=== PATIENT | female | born 1970 | race Caucasian/White ===

== ENCOUNTER 2024-09-28 14:20 | Emergency (ER) | payer OTHER ==
[2024-09-28] MEDS ORDERED: METHYLPREDNISOLONE 125 MG INJ ONE (15:00)
--- NOTE | 2024-09-28 17:09 | ER ---
Nurse's Notes [facility] Name: Shira Velázquez Age: 54 yrs Sex: Female : 1970 Arrival Date: 09/28/2024 Time: 14:20 Bed 14 Private MD: Diagnosis: Urticaria, unspecified;Acute allergic reaction Presentation: 09/28 14:26 Chief complaint: EMS states: they were toned out to for possible allergic reaction to kc6 tomato/citrus at 1145 and broke out in hives at 1200. pt reports the facility gave her 400mg of PO Benadryl prior to EMS arrival. pt was given 1mg of IV Epi by EMS en route. pt reports symptoms have resolved. Coronavirus screen: At this time, the client does not indicate any symptoms associated with coronavirus-19. Ebola Screen: No symptoms or risks identified at this time. Onset: The symptoms/episode began/occurred suddenly. Anaphylaxis evaluation, no signs or symptoms of anaphylaxis were noted. Initial Sepsis Screen: Does the patient meet any 2 criteria? No. Patient's initial sepsis screen is negative. Does the patient have a suspected source of infection? No. Patient's initial sepsis screen is negative. Risk Assessment: Do you want to hurt yourself or someone else? Patient reports no desire to harm self or others. Onset of symptoms was September 28, 2024. Care prior to arrival: Medication(s) given: epinephrine 1mg IV IV initiated. 20 GA, in the left antecubital area. 14:26 Method Of Arrival: EMS: [facility] 14:26 Acuity: WILLY 3 kc6 Historical: - Allergies: 14:29 Sulfa (Sulfonamide Antibiotics); kc6 14:29 Gentamicin; kc6 14:29 Betadine; kc6 - PMHx: 14:29 substance abuse; kc6 - PSHx: 14:29 section; Cholecystectomy; kc6 - Immunization history:: Adult Immunizations up to date. - Infectious Disease History:: Denies. - Social history:: Smoking status: Patient reports the use of cigarette tobacco products, smokes one-half pack cigarettes per day. - Family history:: not pertinent. - Hospitalizations: : No recent hospitalization is reported. Screenin:31 [facility] ED Fall Risk Assessment (Adult) History of falling in the last 3 months, kc6 including since admission No falls in past 3 months (0 pts) Confusion or Disorientation No (0 pts) Intoxicated or Sedated No (0 pts) Impaired Gait No (0 pts) Mobility Assist Device Used No (0 pt) Altered Elimination No (0 pt) Score/Fall Risk Level 0 - 2 = Low Risk Oriented to surroundings, Maintained a safe environment, Educated pt \T\ family on fall prevention, incl call for assistance when getting out of bed. Abuse screen: Denies threats or abuse. Denies injuries from another. Nutritional screening: No deficits noted. Tuberculosis screening: No symptoms or risk factors identified. Assessment: 16:02 General: Appears in no apparent distress. comfortable, well groomed, well developed, kc6 Behavior is calm, cooperative, appropriate for age. Pain: Denies pain. Neuro: Level of Consciousness is awake, alert, obeys commands, Oriented to person, place, time, situation, Appropriate for age. Cardiovascular: Capillary refill < 3 seconds. Respiratory: Airway is patent Trachea midline Respiratory effort is even, unlabored, Respiratory pattern is regular, symmetrical, Breath sounds are clear bilaterally. GI: No signs and/or symptoms were reported involving the gastrointestinal system. : No signs and/or symptoms were reported regarding the genitourinary system. EENT: No signs and/or symptoms were reported regarding the EENT system. Derm: Skin is intact, is healthy with good turgor, Skin is pink, warm \T\ dry. Rash noted that is itchy, red, raised, on chest, right arm and left arm. Musculoskeletal: No signs and/or symptoms reported regarding the musculoskeletal system. Circulation, motion, and sensation intact. Range of motion: intact in all extremities. 17:00 Reassessment: Patient appears in no apparent distress at this time. No changes from kc6 previously documented assessment. Patient and/or family updated on plan of care and expected duration. Pain level reassessed. Patient is alert, oriented x 3, equal unlabored respirations, skin warm/dry/pink. Vital Signs: 14:26 BP 119 / 77; Pulse 88; Resp 18 S; Temp 98.3(O); Pulse Ox 96% on R/A; Weight 70.31 kg kc6 (R); Height 5 ft. 8 in. (R); Pain 0/10; 16:00 BP 110 / 63; Pulse 71; Resp 16 S; Pulse Ox 100% on R/A; kc6 17:39 BP 124 / 84; Pulse 85; Resp 18 S; Pulse Ox 97% on R/A; kc6 14:26 Body Mass Index 23.57 (70.31 kg, 172.72 cm) kc6 14:26 Pain Scale: Adult kc6 ED Course: 14:26 Patient arrived in ED. kc6 14:28 James Riggs MD is Attending Physician. rn 14:29 Triage completed. kc6 14:29 Arm band placed on. kc6 14:30 Patient has correct armband on for positive identification. Bed in low position. Call kc6 light in reach. Side rails up X2. Pulse ox on. NIBP on. Door closed. Noise minimized. Lights dimmed. Warm blanket given. Pillow given. 14:30 Maintain EMS IV. Dressing intact. Good blood return noted. Site clean \T\ dry. Gauge \T\ yuly 6 site: 20G LAC. Flushed with 10 mL NS. Patient maintains SpO2 saturation greater than 95% on room air. 14:58 Luiza Girard, DEVORA is Primary Nurse. kc6 17:39 No provider procedures requiring assistance completed. IV discontinued, intact, kc6 bleeding controlled, No redness/swelling at site. Pressure dressing applied. Administered Medications: 15:28 Drug: MethylPrednisoLONE IVP 125 mg IVP once Route: IVP; Site: left antecubital; kc6 15:59 Follow up: Response: No adverse reaction kc6 Medication: 17:40 VIS not applicable for this client. kc6 Outcome: 17:08 Discharge ordered by . rn 17:39 Discharged to home ambulatory, with family, kc6 17:39 Condition: improved 17:39 Discharge instructions given to patient, family, Instructed on discharge instructions, follow up and referral plans. medication usage, Demonstrated understanding of instructions, follow-up care, medications, Prescriptions given X 1, 17:40 Patient left the ED. kc6 Signatures: James Riggs MD MD rn Campbell, Kaitlyn, RN RN kc
--- NOTE | 2024-09-28 17:09 | EDPHYS ---
Physician Documentation [facility] Name: Shira Velázquez Age: 54 yrs Sex: Female : 1970 Arrival Date: 09/28/2024 Time: 14:20 Bed 14 Private MD: ED Physician James Riggs HPI: 09/28 17:01 This 54 yrs old Female presents to ER via EMS with complaints of Allergic Reaction. rn 17:01 The patient presents with itching, rash. Onset: The symptoms/episode began/occurred rn just prior to arrival. Associated signs and symptoms: Pertinent positives: hives, vomiting. Severity of symptoms: At their worst the symptoms were moderate in the emergency department the symptoms have improved. The patient has experienced similar episodes in the past. Patient reports allergy to tomatoes and citrus, was eating a burrito at rehab and started to break out into a rash, hives, vomiting. Given Benadryl and epinephrine and now feeling better.. Historical: - Allergies: 14:29 Sulfa (Sulfonamide Antibiotics); kc6 14:29 Gentamicin; kc6 14:29 Betadine; kc6 - PMHx: 14:29 substance abuse; kc6 - PSHx: 14:29 section; Cholecystectomy; kc6 - Immunization history:: Adult Immunizations up to date. - Infectious Disease History:: Denies. - Social history:: Smoking status: Patient reports the use of cigarette tobacco products, smokes one-half pack cigarettes per day. - Family history:: not pertinent. - Hospitalizations: : No recent hospitalization is reported. ROS: 17:01 Constitutional: Negative for fever, chills, and weight loss, Neck: Negative for injury, rn pain, and swelling, Cardiovascular: Negative for chest pain, palpitations, and edema, Respiratory: Negative for shortness of breath, cough, wheezing, and pleuritic chest pain, Abdomen/GI: Positive for nausea and vomiting Back: Negative for injury and pain, MS/Extremity: Negative for injury and deformity, Skin: Positive for urticaria Neuro: Negative for headache, weakness, numbness, tingling, and seizure, Exam: 17:01 Constitutional: This is a well developed, well nourished patient who is awake, alert, rn and in no acute distress. ENT: No tongue swelling or stridor Cardiovascular: Regular rate and rhythm. No pulse deficits. Respiratory: No increased work of breathing, no retractions or nasal flaring. Abdomen/GI: Soft, non-tender MS/ Extremity: Pulses equal, no cyanosis. Neuro: Awake and alert, GCS 15, oriented to person, place, time, and situation. Vital Signs: 14:26 BP 119 / 77; Pulse 88; Resp 18 S; Temp 98.3(O); Pulse Ox 96% on R/A; Weight 70.31 kg kc6 (R); Height 5 ft. 8 in. (R); Pain 0/10; 16:00 BP 110 / 63; Pulse 71; Resp 16 S; Pulse Ox 100% on R/A; kc6 17:39 BP 124 / 84; Pulse 85; Resp 18 S; Pulse Ox 97% on R/A; kc6 14:26 Body Mass Index 23.57 (70.31 kg, 172.72 cm) kc6 14:26 Pain Scale: Adult kc6 MDM: 14:28 Medical Screening Exam initiated rn 17:01 Differential diagnosis: anaphylaxis, urticaria. Data reviewed: vital signs, nurses rn notes, and as a result, I will discharge patient. Counseling: I had a detailed discussion with the patient and/or guardian regarding the historical points, exam findings, and any diagnostic results supporting the discharge/admit diagnosis, the need for outpatient follow up, to return to the emergency department if symptoms worsen or persist or if there are any questions or concerns that arise at home. Response to treatment: the patient's symptoms have resolved after treatment, the patient's condition has returned to base line, the patient is now symptom free, and as a result, I will discharge patient. Special discussion: I discussed with the patient/guardian in detail that at this point there is no indication for admission to the hospital. It is understood, however, that if the symptoms persist or worsen the patient needs to return immediately for re-evaluation. Based on the history and exam findings, there is no indication for further emergent testing or inpatient evaluation. I discussed with the patient/guardian the need to see the radio news writer for further evaluation of the symptoms. ED course: Patient feels much better, observed here for 3 hours, no recurrence of urticaria or allergic phenomena. Will discharge home with steroids and as needed Benadryl. 09/28 14:34 Order name: IV Start; Complete Time: 14:58 rn Administered Medications: 15:28 Drug: MethylPrednisoLONE IVP 125 mg IVP once Route: IVP; Site: left antecubital; kc6 15:59 Follow up: Response: No adverse reaction kc6 Disposition Summary: 09/28/24 17:08 Discharge Ordered Notes: Location: Home rn Problem: new rn Symptoms: have improved rn Condition: Stable rn Diagnosis - Urticaria, unspecified rn - Acute allergic reaction rn Followup: rn - With: Private Physician - When: As needed - Reason: Recheck today's complaints, Re-evaluation by your physician Discharge Instructions: - Discharge Summary Sheet rn - Sonia rn Forms: - Medication Reconciliation Form rn - Antibiotic collections attorney - Prescription Opioid Use rn - Patient Portal Instructions rn - Leadership Thank You Letter rn Prescriptions: - Prednisone 20 mg Oral Tablet - take 3 tablets ORAL route once daily for 5 days; 15 tablet; Refills: 0, Product rn Selection Permitted Signatures: James Riggs MD MD rn Campbell, Kaitlyn, RN RN kc
[2024-09-28 17:44] VITALS: TEMP 98.3
[2024-09-28 17:46] VITALS: BP 124/84; O2SAT 97
== END 2024-09-28 17:40 | disposition home or self-care (01) ==
LOC: ER 14:20
DX: L50.9 Urticaria, unspecified (principal)
CPT/HCPCS: 96374; 99284; J2919

== ENCOUNTER 2024-10-04 18:52 | Emergency (ER) | payer OTHER ==
--- OUTSIDE RECORDS SUMMARY | 2024-10-04 18:55 | XMS REPORT | Continuity of Care Document ---
Author Name Unknown Address [address] [facility] [address] [place] [address] [facility] thconnect Address [address] [facility]. [address] [place] [address] Care Team Providers Care Engineering Intern Name Role Phone Pcp, Patient Does Not Have A Primary Care Physic yung OSMIN MARTÍNEZ Attending Clinician Unavailable Osmin Martínez MD Attending Clinician [phone] RELL SALAZAR Attending Clinician Unavailable Rell Salazar MD Attending Clinician [phone] Casi Bush RN Attending Clinician [phone] Doctor Unassigned, Vincent Attending Clinician U navailable Call, [facility] Phone Attending Clinician Unavail able OSMIN MARTÍNEZ Admitting Clinician Unavailable Osmin Martínez MD Admitting Clinician [phone] RELL SALAZAR Admitting Clinician Unavailable Payers Payer Name Policy Type Policy Number Effective Date Expirati on Date Source [facility] [id number] 1380-10-12 00:00:00 Problems Condition Name Condition Details Condition Category Status Onset Date Resolution Date Last Treatment Date Treating Clinician Comments Source Calculus of ureter Calculus of ureter Disease Active 2022-08 0 00:00: 00 [facility] Retained ureteral stent Retained ureteral stent Disease Active 2022-08 0 00:00: 00 [facility] Nephrolith iasis Nephrolith iasis Disease Active 10-18 00:00: 00 [facility] Allergies, Adverse Reactions, Alerts Allergy Name Allergy Type Status Severity Reaction(s) Onset Date Inactive Date Treating Clinician Comments Source BETADINE ANTISEPT IC GAUZE DRUG Active Rash 2022-1 0-20 00:00: 00 [facility] Betadine Antisept ic Gauze Propensi ty to adverse reaction s Active Swelling 2022-1 0-20 00:00: 00 [facility] Sulfamet hoxazole Propensi ty to adverse reaction s Active Rash 2022-0 3- 00:00: 00 [facility] CITRUS AND DERIVATI VES Drug Class Active High SOB 2022-0 3- 00:00: 00 [facility] SULFA (SULFONA MIDE ANTIBIOT ICS) Drug Class Active High Rash 2022-0 3- 00:00: 00 [facility] SULFAMET HOXAZOLE DRUG INGREDI Active Rash 2022-0 3- 00:00: 00 [facility] Vineyards And Derivati ves Propensi ty to adverse reaction s Active Shortness of Breath 0 3- 00:00: 00 [facility] Sulfa (Sulfona mide Antibiot ics) Propensi ty to adverse reaction s Active Rash 2022-0 3- 00:00: 00 [facility] Social History Social Habit Start Date Stop Date Quantity Comments Source [facility] of tobacco use Cigarette Smoker [facility] History SDOH Social Connections Get Together Formerly [facility] History SDOH Social Connections Yazdanism Formerly [facility] History SDOH Social Connections Membership Formerly [facility] History SDOH Social Connections Meetings Formerly [facility] History of Social function 2023-06-21 00:00:00 2023-06-21 00:00:00 [facility] Tobacco use and exposure 2023-06-20 00:00:00 2023-06-20 00:00:00 Smokeless tobacco non-user [facility]ly [facility] Tobacco Comment 2023-06-20 00:00:00 2023-06-20 00:00:00 None since incareration 05-01-23 [facility] History SDOH Alcohol Frequency 2022-10-19 00:00:00 2022-10-19 00:00:00 2 [facility] History SDOH Alcohol Std Drinks 2022-10-19 00:00:00 2022-10-19 00:00:00 0 [facility] History SDOH Alcohol Binge 2022-10-19 00:00:00 2022-10-19 00:00:00 1 [facility] History SDOH Social Connections Phone 2022-10-19 00:00:00 2022-10-19 00:00:00 5 [facility] History SDOH Social Connections Living 2022-10-19 00:00:00 2022-10-19 00:00:00 8 [facility] History SDOH Financial 2022-10-19 00:00:00 2022-10-19 00:00:00 4 [facility] History SDOH Food Worry 2022-10-19 00:00:00 2022-10-19 00:00:00 1 [facility] History SDOH Food Scarcity 2022-10-19 00:00:00 2022-10-19 00:00:00 1 [facility] History SDOH Transport Med 2022-10-19 00:00:00 2022-10-19 00:00:00 2 [facility] History SDOH Transport Non-Med 2022-10-19 00:00:00 2022-10-19 00:00:00 2 [facility] Exposure to SARS-CoV-2 (event) 2022-10-08 00:00:00 2022-10-18 21:44:00 Not sure [facility] Sex Assigned At 1970 00:00:00 1970 00:00:00 [facility] Smoking Status Start Date Stop Date Source Ex-smoker 2023-06-20 00:00:00 2023-06-20 [facility] Sm[facility] tobacco daily 2022-10-18 00:00:00 [facility] Medications Ordered Medication Name Filled Medication Name Start Date Stop Date Current Medication? Ordering Clinician Indication Dosage Frequency Signature (SIG) Comments Components Source HYDROmorphO ne (DILAUDID) injection 0.2 mg 2022-08 21:27: 32 Yes .2mg 0.2 mg, Slow IV Push, Q5MIN PRN, 10 doses, Starting on Ginger 11/2/23 at 1627, Until Discontinu ed, Routine, Pain (scale 7-10), PACU
Us e approved by (Faculty): PACU USE -ANESTHESI A SERVICE-HY DROMORPHON E INJECTIONS [facility] FENTanyl PF (SUBLIMAZE (PF)) injection 25 mcg 2022-08 21:27: 32 Yes 25ug 25 mcg, Slow IV Push, Q5MIN PRN, 4 doses, Starting on Ginger 06/21/23 at 1627, Until Discontinu ed, Routine, Pain (scale 4-6), PACU [facility] ondansetron (ZOFRAN (PF)) injection 4 mg 2022-08 21:27: 32 Yes 4mg 4 mg, Slow IV Push, PRN, 1 dose, Starting on Ginger 06/21/23 at 1627, Until Discontinu ed, Routine, Nausea and Vomiting (N/V), PACU [facility] iohexoL (OMNIPAQUE 300-50 mL)) injection 2022-08 21:20: 00 06-21 22:00 :37 No PRN, Starting on Ginger 06/21/23 at 1620, Until Ginger 06/21/23 at 1700, Routine, Intra-op [facility] ibuprofen 600 mg tablet 2022-08 00:00: 00 Yes [id number] 600mg Take 1 tablet by mouth every 6 (six) hours as needed for Pain (scale 1-3) or Pain (scale 4-6) (Alternate with Tylenol). [facility] ketorolac (TORADOL) injection 15 mg 2022-08 10:15: 00 06-09 10:15 :00 No 15mg 15 mg, Slow IV Push, ONCE, 1 dose, On 06/09/23 at 0515, Routine [facility] lidocaine (XYLOCAINE) 2 % jelly URO-JET 10 mL 2022-08 10:15: 00 06-09 10:15 :00 No 10mL 10 mL, Urethral, ONCE, 1 dose, On 06/09/23 at 0515, Routine [facility] oxyBUTYnin chloride (DITROPAN) tablet 5 mg 2022-08 09:30: 00 06-10 00:59 :00 No 5mg 5 mg, Oral, BID, 2 doses, First dose on 06/09/23 at 0430, Last dose on 06/09/23 at 0800, [facility] ketorolac (TORADOL) injection 30 mg 2022-08 06:45: 00 06-09 06:01 :00 No 30mg 30 mg, Slow IV Push, ONCE, 1 dose, On 06/09/23 at 0145, [facility] FENTanyl PF (SUBLIMAZE (PF)) injection 100 mcg 2022-08 05:15: 00 06-09 05:17 :00 No 100ug 100 mcg, Slow IV Push, ONCE, 1 dose, On 06/09/23 at 0015, STAT [facility] oxyBUTYnin chloride 5 mg tablet 2022-08 00:00: 00 06-21 00:00 :00 No [id number] 5mg Take 1 tablet by mouth in the morning and 1 tablet at noon and 1 tablet in the evening. Take as needed for bladder spasms [facility] amoxicillin -clavulanat e (AUGMENTIN) 875-125 mg per tablet 10-23 00:00: 00 10-31 04:59 :00 No [id number] 1{tbl} Take 1 tablet by mouth in the morning and 1 tablet in the evening. Do all this for 7 days. [facility] acetaminoph en (TYLENOL) 325 mg tablet 10-20 00:00: 00 Yes [id number] 650mg Take 2 tablets by mouth every 6 (six) hours as needed for Pain (scale 1-3). [facility] gabapentin 300 mg capsule 10-20 00:00: 00 Yes [id number] 300mg Take 1 capsule by mouth every 8 (eight) hours as needed for Pain (scale 4-6). [facility] tamsulosin (FLOMAX) 0.4 mg 24 hr capsule 10-20 00:00: 00 10-31 04:59 :00 No [id number] .4mg Take 1 capsule by mouth in the morning for 10 days. [facility] oxybutynin chloride 5 mg tablet 10-20 00:00: 00 10-31 04:59 :00 No [id number] 5mg Take 1 tablet by mouth in the morning and 1 tablet in the evening. Do all this for 10 days. [facility] amoxicillin -clavulanat e (AUGMENTIN) 875-125 mg per tablet 10-20 00:00: 00 10-28 05:59 :00 No [id number] 1{tbl} Take 1 tablet by mouth in the morning and 1 tablet in the evening. Do all this for 7 days. [facility] sennosides (SENOKOT) tablet 8.6 mg 10-19 15:00: 00 Yes 8.6mg 8.6 mg, Oral, DAILY, First dose on Sun10/19/22 at 0900, Until Discontinu ed, Routine [facility] cefTRIAXone (ROCEPHIN) 1,000 mg in NaCl 0.9% (NS) 100 mL MINI-BAG 10-19 13:00: 00 10-24 12:59 :00 No 1000mg 1,000 mg, IV Piggyback, Q24H ABX, 5 doses, First dose (after last modificati on) on Sun10/19/22 at 0700, Last dose on Sun10/23/22 at 0700, Administer over 30 Minutes, 100 mL
Reas on for Anti-Infec tive: Empiric Therapy for Suspected Infection< br>Empiric Therapy Site: Urine
D uration of therapy: 5 days [facility] acetaminoph en (TYLENOL) tablet 650 mg 10-19 04:00: 00 Yes 650mg 650 mg, Oral, Q6H, First dose (after last modificati on) on Sun10/18/22 at 2200, Until Discontinu ed, Routine [facility] tamsulosin (FLOMAX) capsule 0.4 mg 10-19 04:00: 00 Yes .4mg 0.4 mg, Oral, DAILY, First dose on Sun10/18/22 at 2200, Until Discontinu ed, Routine [facility] D5W 0.45% NaCl (1/2NS) 1 L + KCL 20 mEq 10-19 04:00: 00 10-20 12:43 :17 No IV Infusion, at 100 mL/hr, CONTINUOUS , Starting on Sun10/18/22 at 2200, Until Sun10/20/22 at 0643, Routine [facility] gabapentin (NEURONTIN) capsule 300 mg 10-19 03:58: 14 Yes 300mg 300 mg, Oral, PRN, Starting on Sun10/18/22 at 2158, Until Discontinu ed, Routine, Pain (scale 4-6) [facility] ketorolac (TORADOL) injection 15 mg 10-19 03:55: 09 10-23 05:59 :00 No 15mg 15 mg, Slow IV Push, Q6HPRN, 4 doses, Starting on Sun10/18/22 at 2155, Until Sun10/22/22 at 2359, Routine, Pain (scale 7-10) [facility] ondansetron (ZOFRAN (PF)) injection 4 mg 10-19 03:55: 08 Yes 4mg 4 mg, Slow IV Push, Q4HPRN, Starting on Sun10/18/22 at 2155, Until Discontinu ed, Routine, Nausea and Vomiting (N/V) [facility] Vital Signs Vital Name Observation Time Observation Value Comments S ource Oxygen saturation in Arterial blood by Pulse oximetry 2023-06-21 22:42:00 98 /min [facility] Heart rate 2023-06-21 22:30:00 72 /min [facility] Systolic blood pressure 2023-06-21 22:15:00 117 mm[Hg] [facility] Diastolic blood pressure 2023-06-21 22:15:00 71 mm[Hg] [facility] Respiratory rate 2023-06-21 22:15:00 13 /min [facility] Body temperature 2023-06-21 21:55:00 36.22 Milli [facility] Body height 2023-06-21 20:06:00 172.7 cm [facility] Body weight 2023-06-21 20:06:00 58.968 kg [facility] BMI 2023-06-21 20:06:00 19.77 kg/m2 [facility] Systolic blood pressure 2023-06-21 22:00:00 112 mm[Hg] [facility] Diastolic blood pressure 2023-06-21 22:00:00 62 mm[Hg] [facility] Heart rate 2023-06-21 22:00:00 71 /min [facility] Respiratory rate 2023-06-21 22:00:00 9 /min [facility] Oxygen saturation in Arterial blood by Pulse oximetry 2023-06-21 22:00:00 98 /min [facility] Body temperature 2023-06-21 21:55:00 36.22 Milli [facility] Body height 2023-06-21 20:06:00 172.7 cm [facility] Body weight 2023-06-21 20:06:00 58.968 kg [facility] BMI 2023-06-21 20:06:00 19.77 kg/m2 [facility] Systolic blood pressure 2023-06-09 11:45:00 99 mm[Hg] pt. resting on side [facility] Diastolic blood pressure 2023-06-09 11:45:00 60 mm[Hg] pt. resting on side [facility] Heart rate 2023-06-09 11:45:00 52 /min pt. resting on side [facility] Respiratory rate 2023-06-09 11:45:00 16 /min [facility] Oxygen saturation in Arterial blood by Pulse oximetry 2023-06-09 11:45:00 98 /min [facility] Body temperature 2023-06-09 08:01:00 36.44 Milli [facility] Systolic blood pressure 2023-06-09 06:13:00 156 mm[Hg] [facility] Diastolic blood pressure 2023-06-09 06:13:00 81 mm[Hg] [facility] Heart rate 2023-06-09 06:13:00 75 /min [facility] Respiratory rate 2023-06-09 06:13:00 16 /min [facility] Oxygen saturation in Arterial blood by Pulse oximetry 2023-06-09 06:13:00 100 /min [facility] Body temperature 2023-06-09 03:34:00 36.83 Milli [facility] Body height 2023-06-09 03:34:00 172.7 cm [facility] Body weight 2023-06-09 03:34:00 58.968 kg [facility] BMI 2023-06-09 03:34:00 19.77 kg/m2 [facility] Body weight 2022-10-24 16:58:00 72.5 kg [facility] BMI 2022-10-24 16:58:00 24.30 kg/m2 [facility] Body weight 2022-10-20 19:16:00 72.5 kg [facility] BMI 2022-10-20 19:16:00 24.30 kg/m2 [facility] Systolic blood pressure 2022-10-20 18:16:00 118 mm[Hg] [facility] Diastolic blood pressure 2022-10-20 18:16:00 74 mm[Hg] [facility] Heart rate 2022-10-20 18:16:00 77 /min [facility] Body temperature 2022-10-20 18:16:00 36.89 Milli [facility] Respiratory rate 2022-10-20 18:16:00 20 /min [facility] Oxygen saturation in Arterial blood by Pulse oximetry 2022-10-20 18:16:00 99 /min [facility] Body height 2022-10-19 03:50:00 172.7 cm [facility] Systolic blood pressure 2022-10-19 13:56:00 111 mm[Hg] [facility] Diastolic blood pressure 2022-10-19 13:56:00 68 mm[Hg] [facility] Heart rate 2022-10-19 13:56:00 109 /min [facility] Body temperature 2022-10-19 13:56:00 37.06 Milli [facility] Respiratory rate 2022-10-19 13:56:00 20 /min [facility] Oxygen saturation in Arterial blood by Pulse oximetry 2022-10-19 13:56:00 97 /min [facility] Body height 2022-10-19 03:50:00 172.7 cm [facility] Body weight 2022-10-19 03:50:00 72.576 kg [facility] BMI 2022-10-19 03:50:00 24.30 kg/m2 [facility] Procedures Procedure Date / Time Performed Performing Clinician Source FL TIME OR (NON-REPORTABLE) 2023-06-21 22:26:09 Osmin Martínez [facility] FL TIME OR (NON-REPORTABLE) 2023-06-21 22:26:09 Osmin Martínez [facility] URETEROSCOPIC STONE MANIPULATION 2023-06-21 20:29:00 Osmin Martínez [facility] EXTRA TUBE URINE 2023-06-09 10:36:00 Osmin Martínez [facility] XR KUB 2023-06-09 04:03:42 Rell Salazar [facility] BASIC METABOLIC PANEL (NA, K, CL, CO2, GLUCOSE, BUN, CREATININE, CA) 2023-06-09 03:42:00 Rell Salazar [facility] CBC WITH DIFF 2023-06-09 03:42:00 [facility] URINALYSIS 2023-06-09 03:42:00 Rell Salazar [facility] EXTERNAL PROVIDER RECORDS 2022-11-01 05:01:00 Doctor Unassigned, Vincent [facility] URINE CULTURE 2022-10-19 16:28:00 Osmin Martínez [facility] URINE CULTURE 2022-10-19 16:28:00 Osmin Martínez [facility] FL TIME OR (NON-REPORTABLE) 2022-10-19 16:23:00 Osmin Martínez [facility] FL TIME OR (NON-REPORTABLE) 2022-10-19 16:23:00 Osmin Martínez [facility] CYSTOSCOPY WITH INSERTION STENT URETER 2022-10-19 15:30:00 Osmin Martínez [facility] CYSTOSCOPY WITH INSERTION STENT URETER 2022-10-19 15:30:00 Osmin Martínez [facility] XR KUB 2022-10-19 14:49:00 Rocio [facility] XR KUB 2022-10-19 14:49:00 Rocio Osmin [facility] Encounters Start Date/Time End Date/Time Encounter Type Admission Type Attending [facility] Care Facility Care Department Encounter ID Source 2023-06-21 14:46:00 2023-06-21 17:45:00 Outpatient R OSMIN MARTÍNEZ [facility] SUU [id number] [facility] 2023-06-21 14:46:00 2023-06-21 17:45:00 [facility] 1.2.840.114 350.1.13.10 4.2.7.2.686 [id number] [facility] 2023-06-21 14:41:00 2023-06-21 17:02:00 Surgery [facility] 1.2.840.114 350.1.13.10 4.2.7.2.686 [id number] [facility] 2023-06-09 03:02:00 2023-06-09 09:00:00 Emergency Rocio Os[facility] 1.2.840.114 350.1.13.10 4.2.7.2.686 [id number] [facility] 2023-06-09 03:02:00 2023-06-09 09:00:00 Emergency X OSMIN MARTÍNEZ [facility] ERT [id number] [facility] 2023-06-08 22:28:00 2023-06-09 01:53:00 Emergency X RELL SALAZAR [facility] ERT [id number] [facility] 2023-06-08 22:28:00 2023-06-09 01:53:00 Emergency Rell Salazar [facility] 1.2.840.114 350.1.13.10 4.2.7.2.686 [id number] [facility] 2023-06-04 10:24:00 2023-06-04 23:59:00 [facility] [id number] 2023-06-04 10:24:00 2023-06-04 23:59:00 [facility][note 2] 1.2.840.114 350.1.13.10 4.2.7.2.686 [id number] [facility] 2023-05-28 00:00:00 2023-05-28 00:00:00 Telephone [facility] MEDICAL OFFICE BUILDING 1.2.840.114 350.1.13.10 4.2.7.2.686 [id number] [facility] 2023-05-22 00:00:00 2023-05-22 00:00:00 Telephone [facility] MEDICAL OFFICE BUILDING 1.2.840.114 350.1.13.10 4.2.7.2.686 [id number] [facility] 2023-01-18 00:00:00 2023-01-18 00:00:00 Patient Outreach Casi Bush 1.2.840.114 350.1.13.10 4.2.7.2.686 [id number] [facility] 2022-11-28 00:00:00 2022-11-28 00:00:00 [facility] 1.2.840.114 350.1.13.10 4.2.7.2.686 [id number] [facility] 2022-11-22 00:00:00 2022-11-22 00:00:00 Patient Outreach Casi Bush 1.2.840.114 350.1.13.10 4.2.7.2.686 [id number] [facility] 2022-11-01 00:00:00 2022-11-01 00:00:00 Orders Only Doctor Unassigned, Vincent [facility] 1.2.840.114 350.1.13.10 4.2.7.2.686 [id number] [facility] 2022-10-26 00:00:00 2022-10-26 00:00:00 Telephone Osmin Martínez [facility] 1.2.840.114 350.1.13.10 4.2.7.2.686 [id number] [facility] 2022-10-24 11:00:00 2022-10-24 11:05:00 Pre-Anesth esia Evaluation Call, [facility] Apa Phone [facility] 1.2.840.114 350.1.13.10 4.2.7.2.686 [id number] [facility] 2022-10-18 21:01:00 2022-10-20 18:37:00 Outpatient U OSMIN MARTÍNEZ [facility] SUU [id number] [facility] 2022-10-18 21:01:00 2022-10-20 18:37:00 [facility] 1.2.840.114 350.1.13.10 4.2.7.2.686 [id number] [facility] 2022-10-20 00:00:00 2022-10-20 00:00:00 Patient Outreach Casi Bush 1.2.840.114 350.1.13.10 4.2.7.2.686 [id number] [facility] 2022-10-19 09:04:00 2022-10-19 10:44:00 Surgery [facility] 1.2.840.114 350.1.13.10 4.2.7.2.686 [id number] [facility] Results Test Description Test Time Test Comments Results Result Co mments Source CULTURE, URINE 2024-09-26 12:55:23 SPECIMEN NUMBER: [id number] CULTURE, URINE SPECIMEN NUMBER: [id number] SOURCE: URINE REPORT STATUS: FINAL FINAL REPORT: 09/26/2024 10,000 - 100,000 CFU/ML UROGENITAL HANNAH PRESENT NO COMMON PATHOGENS URINALYSIS W/REFLEX [id number] 04:06:39* Test Item Value Reference Range Interpretation Comme nts COLOR (test code = 1501) YELLOW YELLOW-STRAW APPEARANCE (test code = 1502) CLEAR CLEAR SPECIFIC GRAVITY (test code = 1503) 1.016 1.005-1.035 LEUKOCYTE ESTERASE (test code = 1504) 1+ NEGATIVE A NITRITE (test code = 1505) NEGATIVE NEGATIVE pH (test code = 1506) 6.0 5.0-9.0 PROTEIN (test code = 1507) NEGATIVE NEGATIVE GLUCOSE (test code = 1508) NEGATIVE NEGATIVE KETONES (test code = 1509) NEGATIVE NEGATIVE UROBILINOGEN (test code = 1510) 0.2 MG/DL <=2.0 BILIRUBIN (test code = 1511) NEGATIVE NEGATIVE OCCULT BLOOD (test code = 1512) NEGATIVE NEGATIVE WHITE BLOOD CELLS (test code = 1513) 6-10 /HPF 0-5 A RED BLOOD CELLS (test code = 1514) 0-2 /HPF 0-2 EPITHELIAL CELLS (test code = 91984) 0-5 /HPF 0-10 BACTERIA (test code = 1515) NONE SEEN NONE SEEN CASTS, HYALINE (test code = 1517) NONE SEEN NONE-TRACE UNLESS OTHERWISE INDICATED, ALL TESTING PERFORMED AT [facility] [address] [place] [id number] SALES COMMUNICATIONS MANAGER: JOSE MCDONOUGH M.D. CLIA NUMBER [id number] [facility] [place]. [id number] BASIC METABOLIC PANEL (NA, K, CL, CO2, GLUCOSE, BUN, CREATININE, CA)2023-06-09 04:18:58* Test Item Value Reference Range Interpretation Comme nts NA (test code = 0474726864) 135 mmol/L 135-145 K (test code = 1339867188) 3.5 mmol/L 3.5-5.0 CL (test code = 2536500306) 99 mmol/L 98-108 CO2 TOTAL (test code = 6038228681) 28 mmol/L 23-31 AGAP (test code = 5242268727) 8 2-16 BUN (test code = 8160311374) 21 mg/dL 7-23 GLUCOSE (test code = 1442136015) 82 mg/dL 70-110 CREATININE (test code = 0048348390) 0.88 mg/dL 0.50-1.04 CALCIUM (test code = 4791998615) 11.4 mg/dL 8.6-10.6 H eGFR (test code = 5805855947) 66.7 mL/min/1.73m2 MICHAEL (test code = MICHAEL) Association of Glomerular Filtration Rate (GFR) and Staging of Kidney Disease* + --+ --+ ------+| GFR (mL/min/1.73 m2) ?| With Kidney Damage ?| ?Without Kidney Damage+ --------+ --------+ +| ?>90 ?| ?Stage one ?| ? Normal ?+ ---+ ---+ -------+| ?60-89 ?| ?Stage two ?| ? Decreased GFR ? + --+ --+ ------+| ?30-59 ?| ?Stage three ?| ? Stage three ? + --+ --+ ------+| ?15-29 ?| ?Stage four ? | ? Stage four ?+ ---+ ---+ -------+| ?<15 (or dialysis) ? ?| ?Stage five ? | ? Stage five ?+ ---+ ---+ -------+ *Each stage assumes the associated GFR level has been in effect for at least three months. ?Stages 1 to 5, with or without kidney disease, indicate chronic kidney disease. Notes: Determination of stages one and two (with eGFR >59mL/min/1.73 m2) requires estimation of kidney damage for at least three months as defined by structural or functional abnormalities of the kidney, manifested by either:Pathological abnormalities or Markers of kidney damage (including abnormalities in the composition of the blood or urine or abnormalities in imaging tests). Lab Interpretation (test code = 74549-9) Abnormal [facility] WITH [id number] 03:55:40* Test Item Value Reference Range Interpretation Comme nts WBC (test code = 6690-2) 7.87 See_Comment [Automated messa ge] The system which generated this result transmitted reference range: 4.30 - 11.10 10*3/?L. The reference range was not used to interpret this result as normal/abnormal. RBC (test code = 789-8) 4.65 See_Comment [Automated messa ge] The system which generated this result transmitted reference range: 3.93 - 5.25 10*6/?L. The reference range was not used to interpret this result as normal/abnormal. HGB (test code = 718-7) 13.5 g/dL 11.6-15.0 HCT (test code = 4544-3) 39.8 % 35.7-45.2 MCV (test code = 787-2) 85.6 fL 80.6-95.5 MCH (test code = 785-6) 29.0 pg 25.9-32.8 MCHC (test code = 786-4) 33.9 g/dL 31.6-35.1 RDW-SD (test code = 43504-9) 49.1 fL 39.0-49.9 RDW-CV (test code = 788-0) 15.9 % 12.0-15.5 H PLT (test code = 777-3) 247 See_Comment [Automated messa ge] The system which generated this result transmitted reference range: 166 - 358 10*3/?L. The reference range was not used to interpret this result as normal/abnormal. MPV (test code = 48380-2) 10.4 fL 9.5-12.9 NRBC/100 WBC (test code = 3341468064) 0.0 See_Comment [Automated [employer] ssage] The system which generated this result transmitted reference range: 0.0 - 10.0 /100 WBCs. The reference range was not used to interpret this result as normal/abnormal. NRBC x10^3 (test code = 0383128164) See_Comment [Automated messa ge] The system which generated this result transmitted reference range: 10*3/?L. The reference range was not used to interpret this result as normal/abnormal. GRAN MAT (NEUT) % (test code = 770-8) 58.4 % IMM GRAN % (test code = 3821361949) 0.40 % LYMPH % (test code = 736-9) 32.4 % MONO % (test code = 5905-5) 5.8 % EOS % (test code = 713-8) 1.7 % BASO % (test code = 706-2) 1.3 % GRAN MAT x10^3(ANC) (test code = 2658950155) 4.60 10*3/uL 1.88-7.09 IMM GRAN x10^3 (test code = 2957896914) 0.03 10*3/uL 0.00-0.06 LYMPH x10^3 (test code = 731-0) 2.55 10*3/uL 1.32-3.29 MONO x10^3 (test code = 742-7) 0.46 10*3/uL 0.33-0.92 EOS x10^3 (test code = 711-2) 0.13 10*3/uL 0.03-0.39 BASO x10^3 (test code = 704-7) 0.10 10*3/uL 0.01-0.07 H Lab Interpretation (test code = 40452-8) Abnormal [facility]"
[2024-10-04] MEDS ORDERED: FAMOTIDINE 20 MG/2 ML VIAL IV ONE (19:07)
[2024-10-04] MEDS ORDERED: METHYLPREDNISOLONE 125 MG INJ ONE (19:07)
[2024-10-04] MEDS ORDERED: NA CHLORIDE 0.9% 1,000 ML ONE (19:07)
--- NOTE | 2024-10-04 20:14 | ER ---
Nurse's Notes [facility] [place] Name: Shira Velázquez Age: 54 yrs Sex: Female : 1970 Arrival Date: 10/04/2024 Time: 18:52 Bed 8 Private MD: Diagnosis: Acute allergic reaction;Allergic urticaria Presentation: 10/04 18:54 Chief complaint: EMS states: ITCHING AND ERYTHEMA AFTER TASTING LEMON, ALLERGY TO bp [place]. 18:54 Method Of Arrival: EMS: [facility] bp 18:57 Coronavirus screen: At this time, the client does not indicate any symptoms associated bp with coronavirus-19. Ebola Screen: No symptoms or risks identified at this time. Onset: The symptoms/episode began/occurred just prior to arrival. Anaphylaxis evaluation, no signs or symptoms of anaphylaxis were noted. Initial Sepsis Screen: Does the patient meet any 2 criteria? HR > 90 bpm. No. Patient's initial sepsis screen is negative. Does the patient have a suspected source of infection? No. Patient's initial sepsis screen is negative. Risk Assessment: Do you want to hurt yourself or someone else? Patient reports no desire to harm self or others. Onset of symptoms was October 04, 2024 at 18:30. Care prior to arrival: Medication(s) given: BENADRYL 50MG PO, EPI 0.3MG IM, 4 ZOFRAN IV initiated. 20 GA, in the left forearm. 18:57 Acuity: WILLY 3 bp Triage Assessment: 18:59 General: Appears in no apparent distress. Behavior is cooperative, appropriate for age, bp anxious. Pain: Denies pain. EENT: Throat is clear. Neuro: No deficits noted. Cardiovascular: Rhythm is sinus tachycardia. Respiratory: Breath sounds are clear. GI: No signs and/or symptoms were reported involving the gastrointestinal system. : No signs and/or symptoms were reported regarding the genitourinary system. Derm: No deficits noted. Musculoskeletal: No deficits noted. Historical: - Allergies: 18:59 Betadine; bp 18:59 Gentamicin; bp 18:59 Sulfa (Sulfonamide Antibiotics); bp 18:59 [place] And Derivatives; bp - PMHx: 18:59 Substance Abuse; bp - PSHx: 18:59 section; Cholecystectomy; bp - Immunization history:: Adult Immunizations up to date. - Infectious Disease History:: Denies. - Social history:: Smoking status: Patient denies any tobacco usage or history of. Screenin:02 [facility] ED Fall Risk Assessment (Adult) History of falling in the last 3 months, bp including since admission No falls in past 3 months (0 pts) Confusion or Disorientation No (0 pts) Intoxicated or Sedated No (0 pts) Impaired Gait No (0 pts) Mobility Assist Device Used No (0 pt) Altered Elimination No (0 pt) Score/Fall Risk Level 0 - 2 = Low Risk Oriented to surroundings. Abuse screen: Denies threats or abuse. Denies injuries from another. Nutritional screening: No deficits noted. Tuberculosis screening: No symptoms or risk factors identified. Assessment: 19:02 General: Appears in no apparent distress. Behavior is cooperative, appropriate for age, bp anxious. 19:12 General: Appears in no apparent distress. comfortable, Behavior is calm, cooperative, bm8 appropriate for age. Pain: Denies pain. Neuro: No deficits noted. Level of Consciousness is awake, alert, obeys commands, Oriented to person, place, time, situation, Appropriate for age Reports dizziness, after receiving epi and benadryl. Cardiovascular: Denies chest pain, Heart tones S1 S2 present Pulses are all present. Respiratory: Airway is patent Trachea midline Respiratory effort is even, unlabored, Respiratory pattern is regular, symmetrical, Breath sounds are clear bilaterally. GI: No signs and/or symptoms were reported involving the gastrointestinal system. : No signs and/or symptoms were reported regarding the genitourinary system. EENT: Oral mucosa is moist. Throat is clear bilaterally with gag reflex present. Derm: No signs and/or symptoms reported regarding the dermatologic system. Musculoskeletal: No signs and/or symptoms reported regarding the musculoskeletal system. 20:30 Reassessment: Patient appears in no apparent distress at this time. Patient and/or bm8 family updated on plan of care and expected duration. Pain level reassessed. Patient is alert, oriented x 3, equal unlabored respirations, skin warm/dry/pink. Patient denies pain at this time. Patient states feeling better. Patient states symptoms have improved. Vital Signs: 18:57 BP 142 / 80; Pulse 112; Resp 16; Temp 98; Pulse Ox 100% ; bp 19:12 BP 136 / 81; Pulse 94; Resp 18; Temp 98; Pulse Ox 97% ; Pain 0/10; bm8 20:30 BP 97 / 63; Pulse 64; Resp 18; Temp 98; Pulse Ox 97% ; Pain 0/10; bm8 19:12 Pain Scale: Adult bm8 20:30 Pain Scale: Adult bm8 [place] Coma Score: 19:12 Eye Response: spontaneous(4). Motor Response: obeys commands(6). Verbal Response: bm8 oriented(5). Total: 15. 20:30 Eye Response: spontaneous(4). Motor Response: obeys commands(6). Verbal Response: bm8 oriented(5). Total: 15. ED Course: 18:53 Patient arrived in ED. bp 18:54 Hazel Howard PA-C is PHCP. sb4 18:54 Supa Simon MD is Attending Physician. sb4 18:56 Braina Monzon, JAVIER is Primary Nurse. ko1 18:59 Triage completed. bp 18:59 Arm band placed on. bp 19:02 Patient has correct armband on for positive identification. bp 19:12 Report received from javier squires. bm8 19:12 Client placed on continuous cardiac and pulse oximetry monitoring. NIBP monitoring bm8 applied. Pulse ox on. NIBP on. Door closed. Noise minimized. Warm blanket given. Pillow given. Verbal reassurance given. Head of bed elevated. 19:12 No provider procedures requiring assistance completed. Maintain EMS IV. Dressing bm8 intact. Good blood return noted. Site clean \T\ dry. Gauge \T\ site: 20g LFA. Flushed with 10 mL NS Flushed left forearm with 5 ml normal saline. Patient maintains SpO2 saturation greater than 95% on room air. 20:13 Josselin Toure MD is Referral Physician. sb4 20:30 Provided Education on: post er care. bm8 20:30 IV discontinued, intact, bleeding controlled, No redness/swelling at site. Pressure bm8 dressing applied. Administered Medications: 19:11 Drug: NS 0.9% IV 1000 ml IV at 1000 ml once; to be given as a bolus over 60 minutes bm8 Route: IV; Rate: 1000 ml; Site: left forearm; 20:32 Follow up: Response: No adverse reaction; IV Status: Completed infusion; IV Intake: bm8 1000ml 19:11 Drug: Famotidine IVP 20 mg IVP once; dilute with 10 mL 0.9% NaCl; give over 2 minutes bm8 Route: IVP; Site: left forearm; 20:32 Follow up: Response: No adverse reaction bm8 19:11 Drug: MethylPrednisoLONE IVP 125 mg IVP once Route: IVP; Site: left forearm; bm8 20:32 Follow up: Response: No adverse reaction bm8 Medication: 19:12 VIS not applicable for this client. bm8 Intake: 20:32 IV: 1000ml; Total: 1000ml. bm8 Outcome: 20:13 Discharge ordered by . sb4 20:30 Discharged to home ambulatory, bm8 20:30 Condition: stable 20:30 Discharge instructions given to patient, Instructed on discharge instructions, follow up and referral plans. no drinking with medication, no driving heavy equipment, medication usage, safety practices, Demonstrated understanding of instructions, follow-up care, medications, Prescriptions given X 3, 20:33 Patient left the ED. bm8 Signatures: Stefan Flores, RN RN Briana Drake RN RN ko1 Hazel Howard PA-C PAXochitl [email or web address] Oscar Sloan RN RN bm8
--- NOTE | 2024-10-04 20:14 | EDPHYS ---
Physician Documentation [facility] Name: Shira Velázquez Age: 54 yrs Sex: Female : 1970 Arrival Date: 10/04/2024 Time: 18:52 Bed 8 Private MD: ED Physician Supa Simon HPI: 10/04 19:00 This 54 yrs old Female presents to ER via EMS with complaints of Allergy Symptoms. sb4 19:00 states she tasted cheesecake about 2 hours ago and it had lemon juice in it (which she sb4 is allergic to). started experiencing dizziness, flushing, and heaviness in her chest. she took 50 mg PO benadryl and called EMS. EMS administered IM 0.3 epi and 4mg IV zofran. patient states she is feeling better, just itching and dizzy. Historical: - Allergies: 18:59 Betadine; bp 18:59 Gentamicin; bp 18:59 Sulfa (Sulfonamide Antibiotics); bp 18:59 [place] And Derivatives; bp - PMHx: 18:59 Substance Abuse; bp - PSHx: 18:59 section; Cholecystectomy; bp - Immunization history:: Adult Immunizations up to date. - Infectious Disease History:: Denies. - Social history:: Smoking status: Patient denies any tobacco usage or history of. ROS: 19:01 Constitutional: Negative for fever, chills, and weight loss, sb4 19:01 Allergy/Immunology: Positive for allergies, hives, right arm, left arm and neck, pruritus, 19:01 All other systems are negative, Exam: 19:15 Constitutional: This is a well developed, well nourished patient who is awake, alert, sb4 and in no acute distress. Head/Face: Normocephalic, atraumatic. Eyes: Extra-ocular motions intact. Periorbital areas with no swelling, redness, or edema. ENT: Mucous membranes moist. Cardiovascular: Regular rate and rhythm with a normal S1 and S2. Respiratory: No increased work of breathing, no retractions or nasal flaring. Abdomen/GI: Soft, non-tender, no distension. 19:15 ENT: Posterior pharynx: Airway: normal, no evidence of obstruction, patent, 19:15 Skin: Appearance: flushing, that are moderate, neck and chest, 19:15 Respiratory: Breath sounds: are clear throughout, sb4 Vital Signs: 18:57 BP 142 / 80; Pulse 112; Resp 16; Temp 98; Pulse Ox 100% ; bp 19:12 BP 136 / 81; Pulse 94; Resp 18; Temp 98; Pulse Ox 97% ; Pain 0/10; bm8 20:30 BP 97 / 63; Pulse 64; Resp 18; Temp 98; Pulse Ox 97% ; Pain 0/10; bm8 19:12 Pain Scale: Adult bm8 20:30 Pain Scale: Adult bm8 [place] Coma Score: 19:12 Eye Response: spontaneous(4). Motor Response: obeys commands(6). Verbal Response: bm8 oriented(5). Total: 15. 20:30 Eye Response: spontaneous(4). Motor Response: obeys commands(6). Verbal Response: bm8 oriented(5). Total: 15. MDM: 18:54 Medical Screening Exam initiated sb4 19:31 Data reviewed: vital signs, nurses notes, EMS record, and as a result, I will discharge sb4 patient. Counseling: I had a detailed discussion with the patient and/or guardian regarding the historical points, exam findings, and any diagnostic results supporting the discharge/admit diagnosis, the need for outpatient follow up, an ENT specialist, to return to the emergency department if symptoms worsen or persist or if there are any questions or concerns that arise at home. Administered Medications: 19:11 Drug: NS 0.9% IV 1000 ml IV at 1000 ml once; to be given as a bolus over 60 minutes bm8 Route: IV; Rate: 1000 ml; Site: left forearm; 20:32 Follow up: Response: No adverse reaction; IV Status: Completed infusion; IV Intake: bm8 1000ml 19:11 Drug: Famotidine IVP 20 mg IVP once; dilute with 10 mL 0.9% NaCl; give over 2 minutes bm8 Route: IVP; Site: left forearm; 20:32 Follow up: Response: No adverse reaction bm8 19:11 Drug: MethylPrednisoLONE IVP 125 mg IVP once Route: IVP; Site: left forearm; bm8 20:32 Follow up: Response: No adverse reaction bm8 Disposition Summary: 10/04/24 20:13 Discharge Ordered Notes: Location: Home sb4 Problem: new sb4 Symptoms: have improved sb4 Condition: Stable sb4 Diagnosis - Acute allergic reaction sb4 - Allergic urticaria sb4 Followup: sb4 - With: Josselin Toure MD - When: 2 - 3 days - Reason: Recheck today's complaints, Re-evaluation by your physician Discharge Instructions: - Discharge Summary Sheet sb4 - Allergies, Adult sb4 Forms: - Patient Portal Instructions sb4 - Leadership Thank You Letter sb4 Prescriptions: - epinephrine HCl (PF) 1 mg/mL (1 mL) Injection solution - administer 0.1 milliliter SUBCUTANEOUS route every 3 to 4 hours as needed for sb4 anaphylaxis; 1 Applicator; Refills: 0, Product Selection Permitted - Pepcid 20 mg Oral Tablet - take 1 tablet ORAL route every 12 hours for 5 days; 10 tablet; Refills: 0, sb4 Product Selection Permitted - Prednisone 20 mg Oral Tablet - take 1 tablet ORAL route once daily for 5 days; 5 tablet; Refills: 0, Product sb4 Selection Permitted Signatures: Stefan Flores RN RN bp Brown, Sophia, PA-C PA-C sb4 Oscar Sloan RN RN bm8
[2024-10-04 20:38] VITALS: TEMP 98
[2024-10-04 20:39] VITALS: O2SAT 97
[2024-10-04 20:40] VITALS: BP 97/63
== END 2024-10-04 20:33 | disposition home or self-care (01) ==
LOC: ER 18:52
DX: L50.0 Allergic urticaria (principal)
CPT/HCPCS: 96361; 96375; 96374; 99284; J2919; J7030

== ENCOUNTER 2024-10-10 09:00 | Emergency (ER) | payer OTHER ==
--- OUTSIDE RECORDS SUMMARY | 2024-10-10 09:04 | XMS REPORT | Continuity of Care Document ---
Author Name Unknown Address [address] [facility] [address] [place] [address] [facility] thconnect Address [address] [facility] [place] [address] Care Team Providers Care Strategic Sourcing Manager Name Role Phone Pcp, Patient Does Not Have A Primary Care Physic yung OSMIN MARTÍNEZ Attending Clinician Unavailable Osmin Martínez MD Attending Clinician [phone] RELL SALAZAR Attending Clinician Unavailable Rell Salazar MD Attending Clinician [phone] Casi Bush RN Attending Clinician [phone] Doctor Unassigned, [place] Attending Clinician U navailable Call, [facility] Apac Phone Attending Clinician Unavail able OSMIN MARTÍNEZ Admitting Clinician Unavailable Osmin Martínez MD Admitting Clinician [phone] RELL SALAZAR Admitting Clinician Unavailable Payers Payer Name Policy Type Policy Number Effective Date Expirati on Date Source [facility] [id number] 2831-10-12 00:00:00 Problems Condition Name Condition Details Condition Category Status Onset Date Resolution Date Last Treatment Date Treating Clinician Comments Source Calculus of ureter Calculus of ureter Disease Active 2022-08 00:00: 00 [facility] Retained ureteral stent Retained ureteral stent Disease Active 2022-08 0 00:00: 00 [facility] Nephrolith iasis Nephrolith iasis Disease Active 10-18 00:00: 00 [facility] Allergies, Adverse Reactions, Alerts Allergy Name Allergy Type Status Severity Reaction(s) Onset Date Inactive Date Treating Clinician Comments Source BETADINE ANTISEPT IC GAUZE DRUG Active Rash 2022-1 0-20 00:00: 00 [facility] Betadine Antisept ic Gauze Propensi ty to adverse reaction s Active Swelling 2022-1 0-20 00:00: 00 [facility] Sulfamet hoxazole Propensi ty to adverse reaction s Active Rash 2022-0 3- 00:00: 00 [facility] CITRUS AND DERIVATI VES Drug Class Active High SOB 2022-0 3- 00:00: 00 [facility] SULFA (SULFONA MIDE ANTIBIOT ICS) Drug Class Active High Rash 2022-0 3- 00:00: 00 [facility] SULFAMET HOXAZOLE DRUG INGREDI Active Rash 2022-0 3- 00:00: 00 [facility] Propensi ty to adverse reaction s Active Shortness of Breath 0 3- 00:00: 00 [facility] Sulfa (Sulfona mide Antibiot ics) Propensi ty to adverse reaction s Active Rash 2022-0 3- 00:00: 00 [facility] Social History Social Habit Start Date Stop Date Quantity Comments [facility] of tobacco use Cigarette Smoker [facility] History SDOH Social Connections Get Together [facility] History SDOH Social Connections Christian [facility] History SDOH Social Connections Membership [facility] History SDOH Social Connections Meetings [facility] History of Social function 2023-06-21 00:00:00 2023-06-21 00:00:00 [facility] Tobacco use and exposure 2023-06-20 00:00:00 2023-06-20 00:00:00 Smokeless tobacco non-user [facility] Tobacco Comment 2023-06-20 00:00:00 2023-06-20 00:00:00 None since incareration 05-01-23 [facility] History SDOH Alcohol Frequency 2022-10-19 00:00:00 2022-10-19 00:00:00 2 [facility] History SDOH Alcohol Std Drinks 2022-10-19 00:00:00 2022-10-19 00:00:00 0 [facility] History SDOH Alcohol Binge 2022-10-19 00:00:00 2022-10-19 00:00:00 1 [facility] History SDOH Social Connections Phone 2022-10-19 00:00:00 2022-10-19 00:00:00 5 [facility] History SDOH Social Connections Living 2022-10-19 00:00:00 2022-10-19 00:00:00 8 [facility] History SDOH Financial 2022-10-19 00:00:00 2022-10-19 00:00:00 4 [facility] History SDOH Food Worry 2022-10-19 00:00:00 2022-10-19 00:00:00 1 [facility] History SDOH Food Scarcity 2022-10-19 00:00:00 2022-10-19 00:00:00 1 [facility] History SDOH Transport Med 2022-10-19 00:00:00 2022-10-19 00:00:00 2 [facility] History SDOH Transport Non-Med 2022-10-19 00:00:00 2022-10-19 00:00:00 2 [facility] Exposure to SARS-CoV-2 (event) 2022-10-08 00:00:00 2022-10-18 21:44:00 Not sure [facility] Sex Assigned At 1970 00:00:00 1970 00:00:00 [facility] Smoking Status Start Date Stop Date Source Ex-smoker 2023-06-20 00:00:00 2023-06-20 [facility]00[facility]00 [facility] Sm[facility] tobacco daily 2022-10-18 00:00:00 [facility] Medications Ordered Medication Name Filled Medication Name [...] USE -ANESTHESI A SERVICE-HY DROMORPHON E INJECTIONS [facility] FENTanyl PF (SUBLIMAZE (PF)) injection 25 mcg 2022-08 21:27: 32 Yes 25ug 25 mcg, Slow IV Push, Q5MIN PRN, 4 doses, Starting on Ginger 06/21/23 at 1627, Until Discontinu ed, Routine, Pain (scale 4-6), PACU [facility] ondansetron (ZOFRAN (PF)) injection 4 mg 2022-08 21:27: 32 Yes 4mg 4 mg, Slow IV Push, PRN, 1 dose, Starting on Ginger 06/21/23 at 1627, Until Discontinu ed, Routine, Nausea and Vomiting (N/V), PACU [facility] iohexoL (OMNIPAQUE 300-50 mL)) injection 2022-08 21:20: 00 06-21 22:00 :37 No PRN, Starting on Ginger 06/21/23 at 1620, Until Ginger 06/21/23 at 1700, Routine, Intra-op [facility] ibuprofen 600 mg tablet 2022-08 00:00: 00 Yes [id number] 600mg Take 1 tablet by mouth every 6 (six) hours as needed for Pain (scale 1-3) or Pain (scale 4-6) (Alternate with Tylenol). [facility] ketorolac (TORADOL) injection 15 mg 2022-08 10:15: 00 06-09 10:15 :00 No 15mg 15 mg, Slow IV Push, ONCE, 1 dose, On 06/09/23 at 0515, Routine [facility] lidocaine (XYLOCAINE) 2 % jelly URO-JET 10 mL 2022-08 10:15: 00 06-09 10:15 :00 No 10mL 10 mL, Urethral, ONCE, 1 dose, On 06/09/23 at 0515, Routine [facility] oxyBUTYnin chloride (DITROPAN) tablet 5 mg 2022-08 09:30: 00 06-10 00:59 :00 No 5mg 5 mg, Oral, BID, 2 doses, First dose on 06/09/23 at 0430, Last dose on 06/09/23 at 0800, [facility] ketorolac (TORADOL) injection 30 mg 2022-08 06:45: 00 06-09 06:01 :00 No 30mg 30 mg, Slow IV Push, ONCE, 1 dose, On 06/09/23 at 0145, [facility] FENTanyl PF (SUBLIMAZE (PF)) injection 100 mcg 2022-08 05:15: 00 06-09 05:17 :00 No 100ug 100 mcg, Slow IV Push, ONCE, 1 dose, On 06/09/23 at 0015, STAT [facility] oxyBUTYnin chloride 5 mg tablet 2022-08 00:00: 00 06-21 00:00 :00 No [id number] 5mg Take 1 tablet by mouth in the morning and 1 tablet at noon and 1 tablet in the evening. Take as needed for bladder spasms [facility] amoxicillin -clavulanat e (AUGMENTIN) 875-125 mg per tablet 10-23 00:00: 00 10-31 04:59 :00 No [id number] 1{tbl} Take 1 tablet by mouth in the morning and 1 tablet in the evening. Do all this for 7 days. [facility] acetaminoph en (TYLENOL) 325 mg tablet 10-20 00:00: 00 Yes [id number] 650mg Take 2 tablets by mouth every 6 (six) hours as needed for Pain (scale 1-3). [facility] gabapentin 300 mg capsule 10-20 00:00: 00 Yes [id number] 300mg Take 1 capsule by mouth every 8 (eight) hours as needed for Pain (scale 4-6). [facility] tamsulosin (FLOMAX) 0.4 mg 24 hr capsule 10-20 00:00: 00 10-31 04:59 :00 No [id number] .4mg Take 1 capsule by mouth in the morning for 10 days. [facility] oxybutynin chloride 5 mg tablet 10-20 00:00: 00 10-31 04:59 :00 No [id number] 5mg Take 1 tablet by mouth in the morning and 1 tablet in the evening. Do all this for 10 days. [facility] amoxicillin -clavulanat e (AUGMENTIN) 875-125 mg per tablet 10-20 00:00: 00 10-28 05:59 :00 No [id number] 1{tbl} Take 1 tablet by mouth in the morning and 1 tablet in the evening. Do all this for 7 days. [facility] sennosides (SENOKOT) tablet 8.6 mg 10-19 15:00: 00 Yes 8.6mg 8.6 mg, Oral, DAILY, First dose on Sun10/19/22 at 0900, Until Discontinu ed, Routine [facility] cefTRIAXone (ROCEPHIN) 1,000 mg in NaCl 0.9% [...]
D uration of therapy: 5 days [facility] acetaminoph en (TYLENOL) tablet 650 mg 10-19 04:00: 00 Yes 650mg 650 mg, Oral, Q6H, First dose (after last modificati on) on Sun10/18/22 at 2200, Until Discontinu ed, Routine [facility] tamsulosin (FLOMAX) capsule 0.4 mg 10-19 04:00: 00 Yes .4mg 0.4 mg, Oral, DAILY, First dose on Sun10/18/22 at 2200, Until Discontinu ed, Routine [facility] D5W 0.45% NaCl (1/2NS) 1 L + KCL 20 mEq 10-19 04:00: 00 10-20 12:43 :17 No IV Infusion, at 100 mL/hr, CONTINUOUS , Starting on Sun10/18/22 at 2200, Until Sun10/20/22 at 0643, Routine [facility] gabapentin (NEURONTIN) capsule 300 mg 10-19 03:58: 14 Yes 300mg 300 mg, Oral, PRN, Starting on Sun10/18/22 at 2158, Until Discontinu ed, Routine, Pain (scale 4-6) [facility] ketorolac (TORADOL) injection 15 mg 10-19 03:55: 09 10-23 05:59 :00 No 15mg 15 mg, Slow IV Push, Q6HPRN, 4 doses, Starting on Sun10/18/22 at 2155, Until Sun10/22/22 at 2359, Routine, Pain (scale 7-10) [facility] ondansetron (ZOFRAN (PF)) injection 4 mg 10-19 03:55: 08 Yes 4mg 4 mg, Slow IV Push, Q4HPRN, Starting on Sun10/18/22 at 2155, Until Discontinu ed, Routine, Nausea and Vomiting (N/V) [facility] Vital Signs Vital Name Observation Time Observation Value Comments S ource Oxygen saturation in Arterial blood by Pulse oximetry 2023-06-21 22:42:00 98 /min [facility] Heart rate 2023-06-21 22:30:00 72 /min [facility] Systolic blood pressure 2023-06-21 22:15:00 117 mm[Hg] [facility] Diastolic blood pressure 2023-06-21 22:15:00 71 mm[Hg] [facility] Respiratory rate 2023-06-21 22:15:00 13 /min [facility] Body temperature 2023-06-21 21:55:00 36.22 Milli [facility] Body height 2023-06-21 20:06:00 172.7 cm [facility] Body weight 2023-06-21 20:06:00 58.968 kg [facility] BMI 2023-06-21 20:06:00 19.77 kg/m2 [facility] Systolic blood pressure 2023-06-21 22:00:00 112 mm[Hg] [facility] Diastolic blood pressure 2023-06-21 22:00:00 62 mm[Hg] [facility] Heart rate 2023-06-21 22:00:00 71 /min [facility] Respiratory rate 2023-06-21 22:00:00 9 /min [facility] Oxygen saturation in Arterial blood by Pulse oximetry 2023-06-21 22:00:00 98 /min [facility] Body temperature 2023-06-21 21:55:00 36.22 Milli [facility] Body height 2023-06-21 20:06:00 172.7 cm [facility] Body weight 2023-06-21 20:06:00 58.968 kg [facility] BMI 2023-06-21 20:06:00 19.77 kg/m2 [facility] Systolic blood pressure 2023-06-09 11:45:00 99 mm[Hg] pt. resting on side [facility] Diastolic blood pressure 2023-06-09 11:45:00 60 mm[Hg] pt. resting on side [facility] Heart rate 2023-06-09 11:45:00 52 /min pt. resting on side [facility] Respiratory rate 2023-06-09 11:45:00 16 /min [facility] Oxygen saturation in Arterial blood by Pulse oximetry 2023-06-09 11:45:00 98 /min [facility] Body temperature 2023-06-09 08:01:00 36.44 Milli [facility] Systolic blood pressure 2023-06-09 06:13:00 156 mm[Hg] [facility] Diastolic blood pressure 2023-06-09 06:13:00 81 mm[Hg] [facility] Heart rate 2023-06-09 06:13:00 75 /min [facility] Respiratory rate 2023-06-09 06:13:00 16 /min [facility] Oxygen saturation in Arterial blood by Pulse oximetry 2023-06-09 06:13:00 100 /min [facility] Body temperature 2023-06-09 03:34:00 36.83 Milli [facility] Body height 2023-06-09 03:34:00 172.7 cm [facility] Body weight 2023-06-09 03:34:00 58.968 kg [facility] BMI 2023-06-09 03:34:00 19.77 kg/m2 [facility] Body weight 2022-10-24 16:58:00 72.5 kg [facility] BMI 2022-10-24 16:58:00 24.30 kg/m2 [facility] Body weight 2022-10-20 19:16:00 72.5 kg [facility] BMI 2022-10-20 19:16:00 24.30 kg/m2 [facility] Systolic blood pressure 2022-10-20 18:16:00 118 mm[Hg] [facility] Diastolic blood pressure 2022-10-20 18:16:00 74 mm[Hg] [facility] Heart rate 2022-10-20 18:16:00 77 /min [facility] Body temperature 2022-10-20 18:16:00 36.89 Milli [facility] Respiratory rate 2022-10-20 18:16:00 20 /min [facility] Oxygen saturation in Arterial blood by Pulse oximetry 2022-10-20 18:16:00 99 /min [facility] Body height 2022-10-19 03:50:00 172.7 cm [facility] Systolic blood pressure 2022-10-19 13:56:00 111 mm[Hg] [facility] Diastolic blood pressure 2022-10-19 13:56:00 68 mm[Hg] [facility] Heart rate 2022-10-19 13:56:00 109 /min [facility] Body temperature 2022-10-19 13:56:00 37.06 Milli [facility] Respiratory rate 2022-10-19 13:56:00 20 /min [facility] Oxygen saturation in Arterial blood by Pulse oximetry 2022-10-19 13:56:00 97 /min [facility] Body height 2022-10-19 03:50:00 172.7 cm [facility] Body weight 2022-10-19 03:50:00 72.576 kg [facility] BMI 2022-10-19 03:50:00 24.30 kg/m2 [facility] Procedures Procedure Date / Time Performed Performing Clinician Source [place] TIME OR (NON-REPORTABLE) 2023-06-21 22:26:09 Osmin Martínez [facility] FL TIME OR (NON-REPORTABLE) 2023-06-21 22:26:09 Osmin Martínez [facility] URETEROSCOPIC STONE MANIPULATION 2023-06-21 20:29:00 Osmin Martínez [facility] EXTRA TUBE URINE 2023-06-09 10:36:00 Osmin Martínez [facility] XR KUB 2023-06-09 04:03:[address] [facility] BASIC METABOLIC PANEL (NA, K, CL, CO2, GLUCOSE, BUN, CREATININE, CA) 2023-06-09 03:42:00 Rell Salazar [facility] CBC WITH DIFF 2023-06-09 03:42:00 [facility] URINALYSIS 2023-06-09 03:42:[address] [facility] EXTERNAL PROVIDER RECORDS 2022-11-01 05:01:00 Doctor Unassigned, [place] [facility] URINE CULTURE 2022-10-19 16:28:00 Osmin Martínez [facility] URINE CULTURE 2022-10-19 16:28:00 Osmin Martínez [facility] FL TIME OR (NON-REPORTABLE) 2022-10-19 16:23:00 Osmin Martínez [facility] FL TIME OR (NON-REPORTABLE) 2022-10-19 16:23:00 Osmin Martínez [facility] CYSTOSCOPY WITH INSERTION STENT URETER 2022-10-19 15:30:00 Osmin Martínez [facility] CYSTOSCOPY WITH INSERTION STENT URETER 2022-10-19 15:30:00 Osmin Martínez [facility] XR KUB 2022-10-19 14:49:00 [facility] XR KUB 2022-10-19 14:49:00 Rocio Osmin [facility] Encounters Start Date/Time End Date/Time Encounter Type Admission Type Attending [facility] Care Facility Care Department Encounter ID Source 2023-06-21 14:46:00 2023-06-21 17:45:00 Outpatient R OSMIN MARTÍNEZ [facility] SUU [id number] [facility] 2023-06-21 14:46:00 2023-06-21 17:45:00 [facility] 1.2.840.114 350.1.13.10 4.2.7.2.686 [id number] [facility] 2023-06-21 14:41:00 2023-06-21 17:02:00 Surgery [facility] 1.2.840.114 350.1.13.10 4.2.7.2.686 [id number] [facility] 2023-06-09 03:02:00 2023-06-09 09:00:00 Emergency Rocio Osmin [facility] 1.2.840.114 350.1.13.10 4.2.7.2.686 [id number] [facility] 2023-06-09 03:02:00 2023-06-09 09:00:00 Emergency X OSMIN MARTÍNEZ [facility] ERT [id number] [facility] 2023-06-08 22:28:00 2023-06-09 01:53:00 Emergency X RELL SALAZAR [facility] ERT [id number] [facility] 2023-06-08 22:28:00 2023-06-09 01:53:00 Emergency Rell Salazar [facility] 1.2.840.114 350.1.13.10 4.2.7.2.686 [id number] [facility] 2023-06-04 10:24:00 2023-06-04 23:59:00 [facility] [id number] 2023-06-04 10:24:00 2023-06-04 23:59:00 [facility] 1.2.840.114 350.1.13.10 4.2.7.2.686 [id number] [facility] 2023-05-28 00:00:00 2023-05-28 00:00:00 Telephone [facility] MEDICAL OFFICE BUILDING 1.2.840.114 350.1.13.10 4.2.7.2.686 [id number] [facility] 2023-05-22 00:00:00 2023-05-22 00:00:00 Telephone [facility] MEDICAL OFFICE BUILDING 1.2.840.114 350.1.13.10 4.2.7.2.686 [id number] [facility] 2023-01-18 00:00:00 2023-01-18 00:00:00 Patient Outreach Casi Bush 1.2.840.114 350.1.13.10 4.2.7.2.686 [id number] [facility] 2022-11-28 00:00:00 2022-11-28 00:00:[facility] 1.2.840.114 350.1.13.10 4.2.7.2.686 [id number] [facility] 2022-11-22 00:00:00 2022-11-22 00:00:00 Patient Outreach Casi Bush 1.2.840.114 350.1.13.10 4.2.7.2.686 [id number] [facility] 2022-11-01 00:00:00 2022-11-01 00:00:00 Orders Only Doctor Unassigned, [place] [facility] 1.2.840.114 350.1.13.10 4.2.7.2.686 [id number] [facility] 2022-10-26 00:00:00 2022-10-26 00:00:00 Telephone Osmin Martínez [facility] 1.2.840.114 350.1.13.10 4.2.7.2.686 [id number] [facility] 2022-10-24 11:00:00 2022-10-24 11:05:00 Pre-Anesth esia Evaluation Call, [facility] Apa Phone [facility] 1.2.840.114 350.1.13.10 4.2.7.2.686 [id number] [facility] 2022-10-18 21:01:00 2022-10-20 18:37:00 Outpatient U OSMIN MARTÍNEZ [facility] SUU [id number] [facility] 2022-10-18 21:01:00 2022-10-20 18:37:00 [facility] 1.2.840.114 350.1.13.10 4.2.7.2.686 [id number] [facility] 2022-10-20 00:00:00 2022-10-20 00:00:00 Patient Outreach Casi Bush 1.2.840.114 350.1.13.10 4.2.7.2.686 [id number] [facility] 2022-10-19 09:04:00 2022-10-19 10:44:00 Surgery [facility] 1.2.840.114 350.1.13.10 4.2.7.2.686 [id number] [facility] Results Test Description Test Time Test Comments Results Result Co mments Source CULTURE, URINE 2024-09-26 12:55:23 SPECIMEN NUMBER: [id number] CULTURE, URINE SPECIMEN NUMBER: [id number] SOURCE: URINE REPORT STATUS: FINAL FINAL REPORT: 09/26/2024 10,000 - 100,000 CFU/ML UROGENITAL HANNAH PRESENT NO COMMON PATHOGENS URINALYSIS W/REFLEX [id number] 04:06:39* Test Item Value Reference Range Interpretation [...] /HPF 0-2 EPITHELIAL CELLS (test code = 44718) 0-5 /HPF 0-10 BACTERIA (test code = 1515) NONE SEEN NONE SEEN CASTS, HYALINE (test code = 1517) NONE SEEN NONE-TRACE UNLESS OTHERWISE INDICATED, ALL TESTING PERFORMED AT [facility] [address] [place] [address] [employer]: JOSE MCDONOUGH M.D. CLIA NUMBER [id number] [facility] [place] [id number] BASIC METABOLIC PANEL (NA, K, CL, CO2, GLUCOSE, BUN, CREATININE, CA)2023-06-09 04:18:58* Test Item Value Reference Range Interpretation Comme nts NA (test code = 3546224575) 135 mmol/L 135-145 K (test code = 7157273392) 3.5 mmol/L 3.5-5.0 CL (test code = 7894376928) 99 mmol/L 98-108 CO2 TOTAL (test code = 6912140818) 28 mmol/L 23-31 AGAP (test code = 5174017301) 8 2-16 BUN (test code = 2254017465) 21 mg/dL 7-23 GLUCOSE (test code = 7298077587) 82 mg/dL 70-110 CREATININE (test code = 2874992323) 0.88 mg/dL 0.50-1.04 CALCIUM (test code = 6855644955) 11.4 mg/dL 8.6-10.6 H eGFR (test code = 8848381980) 66.7 mL/min/1.73m2 MICHAEL (test code = MICHAEL) [...] imaging tests). Lab Interpretation (test code = 29230-2) Abnormal [facility] WITH [id number] 03:55:40* Test Item Value Reference Range Interpretation [...] 33.9 g/dL 31.6-35.1 RDW-SD (test code = 64367-7) 49.1 fL 39.0-49.9 RDW-CV (test code = 788-0) 15.9 % 12.0-15.5 H PLT (test code = 777-3) 247 See_Comment [Automated messa ge] The system which generated this result transmitted reference range: 166 - 358 10*3/?L. The reference range was not used to interpret this result as normal/abnormal. MPV (test code = 33150-4) 10.4 fL 9.5-12.9 NRBC/100 WBC (test code = 5005043528) 0.0 See_Comment [Automated [employer] ssage] The system which generated this result transmitted reference range: 0.0 - 10.0 /100 WBCs. The reference range was not used to interpret this result as normal/abnormal. NRBC x10^3 (test code = 6163380064) See_Comment [Automated messa ge] The system which generated this result transmitted reference range: 10*3/?L. The reference range was not used to interpret this result as normal/abnormal. GRAN MAT (NEUT) % (test code = 770-8) 58.4 % IMM GRAN % (test code = 9648951963) 0.40 % LYMPH % (test code = 736-9) 32.4 % MONO % (test code = 5905-5) 5.8 % EOS % (test code = 713-8) 1.7 % BASO % (test code = 706-2) 1.3 % GRAN MAT x10^3(ANC) (test code = 1603804468) 4.60 10*3/uL 1.88-7.09 IMM GRAN x10^3 (test code = 9224367308) 0.03 10*3/uL 0.00-0.06 LYMPH x10^3 (test code = 731-0) 2.55 10*3/uL 1.32-3.29 MONO x10^3 (test code = 742-7) 0.46 10*3/uL 0.33-0.92 EOS x10^3 (test code = 711-2) 0.13 10*3/uL 0.03-0.39 BASO x10^3 (test code = 704-7) 0.10 10*3/uL 0.01-0.07 H Lab Interpretation (test code = 05690-5) Abnormal [facility]"
[2024-10-10] MEDS ORDERED: LEVALBUTEROL 1.25 MG/3 ML NEB ONE (09:09)
--- NOTE | 2024-10-10 11:14 | ER ---
Nurse's Notes Formerly [facility] Name: Shira Velázuqez Age: 54 yrs Sex: Female : 1970 Arrival Date: 10/10/2024 Time: 09:00 Bed 15 Private MD: Diagnosis: Inhalation reaction, citrus, with acute allergic reaction Presentation: 10/10 09:12 Chief complaint: Patient states: Inhaled citrus scented graffiti cleaner this morning and is now ss c/o chest tightness. 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 Coronavirus screen: Client denies travel out of the [place] in the last 14 days. Ebola Screen: Patient denies exposure to infectious person. Patient denies travel to an Ebola-affected area in the 21 days before illness onset. Onset: The symptoms/episode began/occurred this morning. Anaphylaxis evaluation, no signs or symptoms of anaphylaxis were noted. Initial Sepsis Screen: Does the patient meet any 2 criteria? No. Patient's initial sepsis screen is negative. Does the patient have a suspected source of infection? No. Patient's initial sepsis screen is negative. Risk Assessment: Do you want to hurt yourself or someone else? Patient reports no desire to harm self or others. Onset of symptoms was October 10, 2024. Care prior to arrival: Medication(s) given: Benadryl 25 mg IV initiated. 20 GA, in the left antecubital area. 09:12 Method Of Arrival: EMS: [facility] 09:12 Acuity: WILLY 3 ss Historical: - Allergies: 09:15 Betadine; ss 09:15 [place] And Derivatives; ss 09:15 Gentamicin; ss 09:15 Sulfa (Sulfonamide Antibiotics); ss - PSHx: 09:15 section; Cholecystectomy; ss - Immunization history:: Adult Immunizations unknown. - Infectious Disease History:: Denies. - Family history:: not pertinent. - Hospitalizations: : No recent hospitalization is reported. - Social history:: Smoking status: unknown. Screenin:04 [facility] ED Fall Risk Assessment (Adult) History of falling in the last 3 months, db including since admission No falls in past 3 months (0 pts) Confusion or Disorientation No (0 pts) Intoxicated or Sedated No (0 pts) Impaired Gait No (0 pts) Mobility Assist Device Used No (0 pt) Altered Elimination No (0 pt) Score/Fall Risk Level 0 - 2 = Low Risk Oriented to surroundings, Maintained a safe environment. Abuse screen: Denies threats or abuse. Denies injuries from another. Nutritional screening: No deficits noted. Tuberculosis screening: No symptoms or risk factors identified. Assessment: 09:30 Reassessment: Patient appears in no apparent distress at this time. Patient and/or db family updated on plan of care and expected duration. Pain level reassessed. Patient is alert, oriented x 3, equal unlabored respirations, skin warm/dry/pink. General: Appears in no apparent distress. comfortable, Behavior is calm, cooperative. Pain: Denies pain. Neuro: Level of Consciousness is awake, alert, obeys commands, Oriented to person, place, time, situation. Cardiovascular: No deficits noted. Respiratory: Airway is patent Respiratory effort is even, unlabored, Respiratory pattern is regular, symmetrical, Breath sounds are clear. 11:22 Reassessment: Patient appears in no apparent distress at this time. Patient and/or db family updated on plan of care and expected duration. Pain level reassessed. Patient is alert, oriented x 3, equal unlabored respirations, skin warm/dry/pink. Patient states feeling better. Patient states symptoms have improved. Vital Signs: 09:08 BP 122 / 79; Pulse 71; Resp 18; Pulse Ox 99% on R/A; db 09:12 BP 122 / 79; Pulse 87; Resp 16; Temp 98.3(TE); Pulse Ox 100% on R/A; Weight 72.57 kg; ss Height 5 ft. 7 in. ; Pain 0/10; 09:30 BP 111 / 68; Pulse 68; Resp 18; Pulse Ox 100% on R/A; db 10:00 BP 104 / 67; Pulse 63; Resp 18; Pulse Ox 96% on R/A; db 11:00 BP 109 / 73; Pulse 61; Resp 18; Pulse Ox 97% on R/A; db 11:22 BP 105 / 73; Pulse 61; Resp 18; Pulse Ox 97% on R/A; db 09:12 Body Mass Index 25.06 (72.57 kg, 170.18 cm) ss 09:12 Pain Scale: Adult ss ED Course: 09:03 Patient arrived in ED. ss 09:03 James Riggs MD is Attending Physician. rn 09:11 Pemberton, Pamela, RN is Primary Nurse. db 09:15 Triage completed. ss 09:15 Arm band placed on right wrist. ss 10:04 Patient has correct armband on for positive identification. Bed in low position. Call db light in reach. Side rails up X 1. Pulse ox on. NIBP on. Warm blanket given. Pillow given. 10:04 Initial Neb Treatment Given as ordered Patient was instructed and evaluated on db procedure Patient tolerated procedure well without adverse effect. 10:05 Maintain EMS IV. Dressing intact. Good blood return noted. Site clean \T\ dry. Gauge \T\ db site: 20 G LEFT AC. 11:22 Provided Education on: DISCHARGE AND FOLLOWUP. db 11:23 No provider procedures requiring assistance completed. IV discontinued, intact, db bleeding controlled, No redness/swelling at site. Administered Medications: 09:15 Drug: Levalbuterol Inhalation 1.25 mg Inhalation once Route: Inhalation; db 11:26 Follow up: Response: No adverse reaction db Medication: 10:04 VIS not applicable for this client. db Outcome: 11:13 Discharge ordered by . rn 11:23 Discharged to home ambulatory, db 11:23 Condition: stable 11:23 Discharge instructions given to patient, Instructed on discharge instructions, follow up and referral plans. 11:26 Patient left the ED. db Signatures: James Riggs MD MD rn Blanchard, Shelby, RN RN Pamela Pemberton RN RN db
--- NOTE | 2024-10-10 11:14 | EDPHYS ---
Physician Documentation [facility] Name: Shira Velázquez Age: 54 yrs Sex: Female : 1970 Arrival Date: 10/10/2024 Time: 09:00 Bed 15 Private MD: ED Physician James Riggs HPI: 10/10 09:10 This 54 yrs old Female presents to ER via Unassigned with complaints of Allergic rn Reaction. 09:10 The patient presents with shortness of breath. Onset: The symptoms/episode rn began/occurred just prior to arrival. Associated signs and symptoms: Pertinent positives: shortness of breath, Pertinent negatives: abdominal pain, chest pain, fever, hives, rash. Possible causes: [place] cleaning agent. Severity of symptoms: At their worst the symptoms were moderate in the emergency department the symptoms have improved. The patient has experienced similar episodes in the past. Patient reports she is allergic to citrus. 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 Given Benadryl by EMS with improvement of symptoms now. No fever or chills. [place] fine prior to exposure. No rash. No swelling.. Historical: - Allergies: 09:15 Betadine; ss 09:15 [place] And Derivatives; ss 09:15 Gentamicin; ss 09:15 Sulfa (Sulfonamide Antibiotics); ss - PSHx: 09:15 section; Cholecystectomy; ss - Immunization history:: Adult Immunizations unknown. - Infectious Disease History:: Denies. - Family history:: not pertinent. - Hospitalizations: : No recent hospitalization is reported. - Social history:: Smoking status: unknown. ROS: 09:10 Constitutional: Negative for fever, chills, and weight loss, Cardiovascular: Negative rn for chest pain, palpitations, and edema, Respiratory: Positive for shortness of breath Abdomen/GI: Negative for abdominal pain, nausea, vomiting, diarrhea, and constipation, MS/Extremity: Negative for injury and deformity, Skin: Negative for injury, rash, and discoloration, Neuro: Negative for headache, weakness, numbness, tingling, and seizure, Exam: 09:10 Constitutional: This is a well developed, well nourished patient who is awake, alert, rn and in no acute distress. Cardiovascular: Regular rate and rhythm. No pulse deficits. Respiratory: Mild tachypnea, no retractions or nasal flaring. No wheezing noted. Abdomen/GI: Soft, non-tender, with normal bowel sounds. No distension or tympany. No guarding or rebound. No evidence of tenderness throughout. Skin: No urticaria MS/ Extremity: Pulses equal, no cyanosis. Neuro: Awake and alert, GCS 15 Vital Signs: 09:08 BP 122 / 79; Pulse 71; Resp 18; Pulse Ox 99% on R/A; db 09:12 BP 122 / 79; Pulse 87; Resp 16; Temp 98.3(TE); Pulse Ox 100% on R/A; Weight 72.57 kg; ss Height 5 ft. 7 in. ; Pain 0/10; 09:30 BP 111 / 68; Pulse 68; Resp 18; Pulse Ox 100% on R/A; db 10:00 BP 104 / 67; Pulse 63; Resp 18; Pulse Ox 96% on R/A; db 11:00 BP 109 / 73; Pulse 61; Resp 18; Pulse Ox 97% on R/A; db 11:22 BP 105 / 73; Pulse 61; Resp 18; Pulse Ox 97% on R/A; db 09:12 Body Mass Index 25.06 (72.57 kg, 170.18 cm) ss 09:12 Pain Scale: Adult ss MDM: 09:03 Medical Screening Exam initiated rn 11:11 Differential diagnosis: Inhalation reaction, lung hypersensitivity reaction, allergic rn reaction. Data reviewed: vital signs, nurses notes, and as a result, I will discharge patient. Counseling: I had a detailed discussion with the patient and/or guardian regarding the historical points, exam findings, and any diagnostic results supporting the discharge/admit diagnosis, the need for outpatient follow up, to return to the emergency department if symptoms worsen or persist or if there are any questions or concerns that arise at home. Special discussion: I discussed with the patient/guardian in detail that at this point there is no indication for admission to the hospital. It is understood, however, that if the symptoms persist or worsen the patient needs to return immediately for re-evaluation. ED course: Patient feels much better, at baseline, denies any dyspnea or allergic symptoms. Ready to go home.. Administered Medications: 09:15 Drug: Levalbuterol Inhalation 1.25 mg Inhalation once Route: Inhalation; db 11:26 Follow up: Response: No adverse reaction db Disposition Summary: 10/10/24 11:13 Discharge Ordered Notes: Location: Home rn Problem: new rn Symptoms: have improved rn Condition: Stable rn Diagnosis - Inhalation reaction, citrus, with acute allergic reaction rn Followup: rn - With: Private Physician - When: As needed - Reason: Recheck today's complaints, Re-evaluation by your physician Forms: - Medication Reconciliation Form rn - Antibiotic journalist - Prescription Opioid Use rn - Patient Portal Instructions rn - Leadership Thank You Letter rn Signatures: James Riggs MD MD rn Blanchard, Shelby, RN RN ss Pamela Pemberton, RN RN db
[2024-10-11 03:23] VITALS: TEMP 98.3
[2024-10-11 03:28] VITALS: O2SAT 97
[2024-10-11 03:30] VITALS: BP 105/73
== END 2024-10-10 11:26 | disposition home or self-care (01) ==
LOC: ER 09:00
DX: T59.91XA Toxic effect of unspecified gases, fumes and vapors, accidental (unintentional), initial encounter (principal); Z91.018 Allergy to other foods
CPT/HCPCS: 94640; 99284; J7614